=== PATIENT | female | born 1955 | race Caucasian/White ===

== ENCOUNTER 2023-12-10 22:42 | Inpatient (IN) | payer MEDICARE, OTHER, SELFPAY ==
[2023-12-10 17:42] VITALS: BP 127/73
[2023-12-10 18:06] LABS: % Basophils 0.5 % (0-2); % Eosinophils 6.9 % (0-6); % Immature Granulocytes 0.4 % (0-0.5); % Lymphocytes 11.3 % (20.5-51.1); % Monocytes 9.7 % (1.7-9.3); % Neutrophils 71.2 % (42.2-75.2); Absolute Basophils 0.1 10^3/uL (0-0.2); Absolute Eosinophils 1.3 10^3/uL (0-0.7); Absolute Immature Granulocytes 0.1 10^3/uL (0-0.05); Absolute Lymphocytes 2.1 10^3/uL (1.2-3.4); Absolute Monocytes 1.8 10^3/uL (0.1-0.6); Hematocrit 37.7 % (37.0-47.0); Hemoglobin 13.4 g/dL (12.0-16.0); Mean Corp Hgb Conc. 35.5 g/dL (33.0-37.0); Mean Corpuscular Hgb 32.5 pg (27.0-31.0); Mean Corpuscular Volume 91.5 fL (81.0-99.0); Mean Platelet Volume 8.5 fL (7.4-10.4); Nucleated Red Blood Cells % 0 %; Platelet Count 339 10^3/uL (130-400); Red Blood Cell Count 4.12 10^6/uL (4.20-5.40); Red Cell Dist. Width 11.9 % (11.5-14.5); White Blood Cell Count 18.3 10^3/uL (4.8-10.8)
--- NOTE | 2023-12-10 18:18 | ED.GENMED ---
History of Present Illness
General
Chief Complaint: Abdominal Pain
Source: patient
Exam Limitations: none
Time Seen by Provider: 12/10/23 18:17
Nursing documentation reviewed up to this point in time: agreed with
Travel History
Have you had any contact with someone who has COVID-19?: No
Do you have any symptoms of coronavirus? Fever > 100 degrees, chills, cough, shortness of breath, sore throat, loss of taste or smell, muscle aches, or headache?: No
History of Present Illness
History of Present Illness:
68-year-old female with history of Saul, GERD, HTN, HLD, NIDDM states LLQ pain x 2 days, some relief with Tylenol today pain worse, feels constipated and bloated, had hard BM this a.m., is nauseous w no vomiting. Denies fever, CP, SOB
Meds:
Hydrochlorothiazide 12.5
Prevacid 15 mg
Jardiance 10 mg
Amlodipine 5 mg
Losartan 50 mg
Generic Zetia 10 mg
Just stopped metformin 500 mg yesterday and started Glipizide ER 5 mg
Being treated for UTI: Bactrim DS BID has had three doses
Past History
Past History
ED Past Medical History: HTN, NIDDM, Other (Bronchitis) and Other (Elevated LFTs from Zocor)
ED Past Surgical History: Gynecological and Orthopedic
Social History
Tobacco: Non-smoker
Alcohol: None
Drug: None
Personal:
Living: with family
Employment: Employed
Family History
Family History: Other (Gallstones)
Review of Systems
Review of Systems
Allergies reviewed?: Yes
All Other Systems: ROS reviewed and negative except as documented in HPI and ROS
Constitutional: Denies fever
Respiratory: Denies trouble breathing
Cardiac: Denies chest pain
ABD/GI: Reports abdominal pain, nausea and constipated; Denies vomiting, diarrhea, bloody stools or black stools
: Denies dysuria, frequency, difficulty voiding or urgency
Musculoskeletal: Reports no symptoms
Skin: Reports no symptoms
Neurological: Reports no symptoms
Phy Exam
Physical Exam
Physical Exam:
GENERAL: No acute distress. A&Ox3.
CONSTITUTIONAL: Afebrile.
EYES: clear, conjunctivae normal
ENMT: moist mucus membranes, Pharynx nl
RESPIRATORY: Regular respirations, nonlabored, lungs clear.
CARDIOVASCULAR: Regular rate and rhythm, no murmurs, no rubs.
GI: Soft, tender left abdomen, no guarding, hypoactive BS
MUSCULOSKELETAL: Moves with ease. Well perfused.
SKIN: Warm, dry, pink
PSYCH: Normal mood and affect. Well kept, interactive and appropriate
NEUROLOGIC: Awake, alert and oriented. No focal neurological deficits
Course
Orders/Labs/Results
Orders:
Orders
12/10/23 17:55
Complete Blood Count/With Diff Urgent
Comprehensive Metabolic Panel Urgent
Lipase Urgent
Urinalysis Reflex To Culture Urgent
Date Specimen was Collected: 12/10/23
Time Specimen was Collected: 17:49
Comment: clean catch
Urine Microscopic Reflex Cult Urgent
Urine Culture Urgent
JUAN LUIS Source: U
Specimen Description:
Date Specimen was Collected: 12/10/23
Time Specimen was Collected: 17:49
12/10/23 18:27
CT Abd/Pel (IV only)-DH only Urgent
Comment:
Reason For Exam: L side abdominal pain, bloating, constipated.
12/10/23 18:34
0.9% Sodium Chloride 1000 ml [Nss] 1,000 ml IV BOLUS
HYDROmorphone [Dilaudid] 0.5 mg IV NOW STA
Ondansetron Injectable [Zofran] 4 mg IV NOW STA
12/10/23 20:53
Acetaminophen 1000MG/100Ml [Ofirmev] 1,000 mg in 100 ml IV ONCE
Acetaminophen IV Indication:: No NH & No Enteral Access
Ondansetron Injectable [Zofran] 4 mg IV NOW STA
12/10/23 20:55
CefTRIAXone [Rocephin] 1,000 mg IV NOW STA
12/10/23 21:06
COVID-19 Antigen Urgent
Specimen Description:
Source: Nasal Swab
Lactic Acid Q4H
Comment: CANCEL 2nd LACTIC ACID IF 1st LACTIC ACID IS LESS THAN 2
Blood Culture Q30M
JUAN LUIS Source: Blood/Venous
Specimen Description:
Blood Culture Q30M
JUAN LUIS Source: Blood/Venous
Specimen Description:
Influenza A+B Rapid Molecular Urgent
JUAN LUIS Source: Nasal Swab
Specimen Description:
12/10/23 21:24
CR Chest - 2 Views Urgent
Comment:
Reason For Exam: fever, n/v, cough
12/10/23 22:00
Flush (0.9% Sodium Chloride) [Flush (Nss)] See Dose Instructions IV PER PROTOCOL
12/10/23 22:21
Admit/Transfer Patient As Directed
Co-Sign Provider:
Level of Care: Inpatient admission
Assign to:: Telemetry
Physician / Group: Sridevi
Diagnosis: Severe Sepsus
Reason for Telemetry: Arrhythmia
Date to Stop Telemetry: 12/13/23
Time to Stop Telemetry: 11:00
Reason for Hospitalization: IVFs, IV abx
Expected length of stay greater than two midnights?: Yes
ELOS- Estimated Length of Stay in days: 3
I certify the patient meets the requirements for IP care: Yes
0.9% Sodium Chloride 500 ml [Nss] 500 ml IV BOLUS
12/10/23 22:23
Code Status As Directed
Resuscitation Status: Full Code
12/10/23 22:30
0.9% Sodium Chloride 1000 ml [Nss] 1,000 ml IV 125 mls/hr
12/10/23 23:19
Acetaminophen [Tylenol] 650 mg PO Q4HPRN PRN
Dextrose 50%-Water [Dextrose 50% Syringe] 12.5 grams IV [id number] PRN
Glucagon [GlucaGen] 1 mg IM PRN PRN
HYDROmorphone [Dilaudid] 0.25 mg IV Q3HPRN PRN
Ketorolac [Toradol] 15 mg IV Q6HPRN PRN
Ondansetron Injectable [Zofran] 4 mg IV Q6HPRN PRN
12/10/23 23:19
Activity As Directed
Activity Level: Out of Bed-Early Mobility
With Assistance
Bedside Glucose Monitoring As Directed
Frequency: AC&HS
Additional Instructions:: Change to q6h if pt on TPN, tube feeding or not eating
I&O [Intake/ Output] As Directed
Frequency: q12h
Vital Signs As Directed
Frequency: Per unit guidelines
Weight As Directed
Frequency: Daily
DX Deep Vein Thrombosis Video Routine
12/11/23 00:00
Piperacillin/Tazo 3.375 Gram [Zosyn] 3.375 gram in 50 ml IV Q6H
12/11/23 00:50
Lactic Acid Q4H
Comment: CANCEL 2nd LACTIC ACID IF 1st LACTIC ACID IS LESS THAN 2
12/11/23 06:18
Complete Blood Count/No Diff IN AM
Comprehensive Metabolic Panel IN AM
Magnesium IN AM
12/11/23 07:30
Insulin Aspart Corrective Mod [Novolog Flexpen-Moderate Resistance] See Protocol SC AC
12/11/23 08:00
Amlodipine [Norvasc] 5 mg PO DAILY
Cetirizine HCl [Zyrtec] 10 mg PO DAILY
Losartan [Cozaar] 50 mg PO DAILY
Pantoprazole [Protonix] 40 mg PO DAILY
12/11/23 18:00
Enoxaparin Sodium [Lovenox] 40 mg SC QPM
12/13/23 11:00
DC Protocol for Telemetry ONCE
Abnormal Lab Results
12/10/23 12/10/23
17:55 21:06
WBC 18.3 H 10^3/uL
(4.8-10.8)
RBC 4.12 L 10^6/uL
(4.20-5.40)
MCH 32.5 H pg
(27.0-31.0)
Abs Immat Gran (auto) 0.1 H 10^3/uL
(0-0.05)
Absolute Neuts (auto) 13.0 H 10^3/uL
(1.4-6.5)
Absolute Monos (auto) 1.8 H 10^3/uL
(0.1-0.6)
Absolute Eos (auto) 1.3 H 10^3/uL
(0-0.7)
Lymphocytes % 11.3 L %
(20.5-51.1)
Monocytes % 9.7 H %
(1.7-9.3)
Eosinophils % 6.9 H %
(0-6)
Chloride 94 L mmol/L
(98-107)
Glucose 123 H mg/dl
(70-99)
Lactic Acid 3.4 H mmol/L
(0.7-2.0)
ALT 63 H U/L
(0-35)
Urine Nitrite (Reflex) Positive A
(Negative)
Urine Bacteria (Reflex) Few A
(Negative)
Urine Glucose 3+ A
(Negative)
12/10/23 17:55
12/10/23 17:55
Vital Signs
Initial and Last Documented VS:
Initial Vital Signs
Temp Pulse Resp BP Pulse Ox
98.4 F 94 18 127/73 98
12/10/23 17:42 12/10/23 17:42 12/10/23 17:42 12/10/23 17:42 12/10/23 17:42
Last Documented Vital Signs
Temp Pulse Resp BP Pulse Ox
98.1 F 82 18 102/53 92
12/11/23 07:45 12/11/23 07:45 12/11/23 07:45 12/11/23 07:45 12/11/23 07:45
MDM/Problems Addressed
Differential Diagnosis Includes:
Constipation, IBS, Colitis, diverticulitis
UTI, Urosepsis
MDM/Problems Addressed:
68-year-old female with history of Saul, GERD, HTN, HLD, NIDDM states LLQ pain x 2 days, some relief with Tylenol today pain worse, feels constipated and bloated, had hard BM this a.m., is nauseous w no vomiting. Denies fever, CP, SOB
Afebrile
6:30 p.m.
CBC: WBC 18.3
CMP: No clinically significant abnormality
U/A: Positive nitrites 6-10 WBC
8:[address] abdomen pelvis with
IMPRESSION:
Colonic diverticulosis. No intestinal obstruction, right lower quadrant inflammatory changes or free air.
Several small right lower quadrant mesenteric lymph nodes, nonspecific. Cannot exclude mesenteric adenitis.
Findings suggesting diffuse fatty liver.
8:50 p.m.
Sudden onset nausea and vomiting, rigors and fever
Temp 103.1
Septic work up in progress
?UTI failing out pt antibiotics
CXR pending
Covid and Flu pending.
Hospitalist notified of admission.
Chronic conditions affecting care: DM and HTN
*Critical Care Note
Total Time (30-74mins, 75-104mins- exclusive of procedures): Not Applicable
ED Attending Note
-
Portions of this chart may have been created with voice recognition software.� Occasional wrong word or��sound alike� substitutions may have occurred due to the inherent limitations of voice recognition software.
Discharge Plan
Departure
Patient Disposition: Admit
Date of Disposition: 12/10/23
Time of Disposition: 21:25
Admit to: Med/Surg
Presentation/result/management discussed w/ accepting MD/DO: Hospitalist
Condition: Fair
Discharge Problem:
Acute UTI, SIRS (systemic inflammatory response syndrome)
Interventions
Interventions:
*Risk Screen - Suicide Last Done: 12/10/23 23:18
*General Assessment Last Done: 12/10/23 23:18
*Neglect/Abuse Screening Last Done: 12/10/23 23:18
ED- Fall Risk Assessment Last Done: 12/10/23 19:12
*ED COVID-19 Vaccine History Last Done: 12/10/23 23:18
*Nursing Disposition Last Done: 12/10/23 23:18
MM-Oinazo-[id number] Assessment Last Done: 12/10/23 19:12
Discharge Date and Time
Discharge Date/Time: 12/10/23 23:30
[2023-12-10 18:21] LABS: ALT (SGPT) 63 U/L (0-35); AST (SGOT) 33 U/L (14-36); Albumin 4.5 g/dl (3.5-5.0); Alkaline Phosphatase 119 U/L (38-126); Blood Urea Nitrogen 15 mg/dl (7-17); Calcium 10.2 mg/dl (8.4-10.2); Carbon Dioxide 29 mmol/L (22-30); Chloride 94 mmol/L (98-107); Glucose 123 mg/dl (70-99); Potassium 3.7 mmol/L (3.5-5.1); Sodium 135 mmol/L (135-145); Total Bilirubin 1.3 mg/dl (0.2-1.3); Total Protein 7.9 g/dl (6.3-8.2); eGFR > 60.00
[2023-12-10 18:22] LABS: Lipase 73 U/L (23-300)
[2023-12-10 18:45] LABS: Urine Albumin Trace (Neg - Trace); Urine Bilirubin Negative (Negative); Urine Character Clear (Clear); Urine Color Yellow; Urine Glucose 3+ (Negative); Urine Ketone Negative (Negative); Urine Leukocyte Negative (Negative); Urine Nitrite Positive (Negative); Urine Occult Blood Negative (Negative); Urine Specific Gravity 1.005 (<1.030); Urine Urobilinogen Negative (Neg - 1+)
[2023-12-10] MEDS: ZOFRAN 4 MG IV ×2 (19:07→21:13)
[2023-12-10] MEDS: DILAUDID 0.5 MG IV (19:07)
[2023-12-10] MEDS: NSS 1000 IV ×2 (19:09→22:47)
[2023-12-10 19:17] LABS: Urine Red Blood Cell 0-2 /HPF (0-2)
[2023-12-10 19:18] LABS: Urine Bacteria Few (Negative)
[2023-12-10 21:00] VITALS: BP 175/95
[2023-12-10 21:09] VITALS: BP 175/95
[2023-12-10] MEDS: OFIRMEV 100 IV (21:12)
[2023-12-10] MEDS: ROCEPHIN 1000 MG IV (21:12)
[2023-12-10 21:19] VITALS: BMI 30.9
[2023-12-10 21:23] VITALS: BP 148/64
[2023-12-10 21:38] LABS: Lactic Acid 3.4 mmol/L (0.7-2.0)
[2023-12-10 21:41] LABS: COVID-19 Antigen Negative (Negative)
--- NOTE | 2023-12-10 22:12 | HPS.HSE ---
Family Physician
-
Family Physician: Tomas Armas
Chief Complaint
-
Abdominal Pain
History of Present Illness
Patient is a 68 y/o female past medical history of hypertension, hyperlipidemia, diabetes mellitus and GOETZ who presents with abdominal pain. Patient reports she initially developed dysuria with some abdominal pain a few days ago. She was started
on Bactrim for a urinary tract infection. She reports both dysuria and abdominal pain improved, but than abdominal pain recurred. Pain is described as constant pain in the left mid-abdomen with an occasional sharp stab. She repots some nausea and
dry heaves. She reports associated constipation. While in the emergency department she developed fever. She denies cough, shortness of breath, chest pain or recurrence of urinary symptoms.
Medical History
Past Medical History
Past Medical History: Reports Other
Additional Past Medical History:
Essential Hypertension
Hyperlipidemia
Diabetes Mellitus
GOETZ
GERD
Past Surgical History: Reports Other
Additional Past Surgical History:
Left Wrist Fracture
Social History
Tobacco: Non-smoker
Alcohol: Occasional
Family History
Family History: Not pertinent
Allergies / Home Medications
Allergies reflects when Allergies were last updated in [employer].
Home Medications with original date entered in [employer]
Allergy/Medication List:
Allergies
Allergy/AdvReac Type Severity Reaction Status Date / Time
No Known Allergies Allergy Verified 12/10/23 17:42
Home Medications
amlodipine 5 mg tablet 5 mg PO DAILY 04/05/13
cetirizine 10 mg tablet 10 mg PO DAILY 04/05/13
hydrochlorothiazide 12.5 mg capsule 12.5 mg PO DAILY 04/05/13
empagliflozin 10 mg tablet (Jardiance) 10 mg PO DAILY 12/10/23
ezetimibe 10 mg tablet (Zetia) 10 mg PO DAILY 12/10/23
glipizide 5 mg tablet, extended release 24 hr 5 mg PO DAILY 12/10/23
lansoprazole 15 mg capsule,delayed release 15 mg PO DAILY 12/10/23
losartan 50 mg tablet 50 mg PO DAILY 12/10/23
Review of Systems
-
A 12 point ROS was completed and negative except as noted: Yes
Constitutional: Reports Fever
Respiratory: Denies Cough or Trouble Breathing
Cardiac: Denies Chest Pain or Palpitations
Abdomen/GI: Reports See HPI
: Denies Dysuria or Frequency
Physical Exam
Vital Signs
Vital Signs
Temp Pulse Resp BP Pulse Ox
103.1 F H 122 20 175/95 100
12/10/23 21:09 12/10/23 21:09 12/10/23 21:09 12/10/23 21:09 12/10/23 21:09
Physical Exam
General: Comfortable and Conversant
HEENT: Anicteric and Moist mucous membranes
Respiratory: Clear and Non Labored Respirations
Cardiac: S1/S2, Regular Rhythm and Tachycardia
GI: Soft and Tender (Mild tenderness left mid/lower abdomen without rebound or guarding)
Musculoskeletal: No Clubbing, No Cyanosis and No Edema
Skin: Warm and Dry
Neuro: Awake, Alert, Oriented and Nonfocal/grossly intact
Laboratory Results
-
12/10/23 17:55
12/10/23 17:55
Laboratory Results
Lactic Acid 3.4 mmol/L (0.7-2.0) H 12/10/23 21:06
Total Bilirubin 1.3 mg/dl (0.2-1.3) 12/10/23 17:55
AST 33 U/L (14-36) 12/10/23 17:55
ALT 63 U/L (0-35) H 12/10/23 17:55
Alkaline Phosphatase 119 U/L (38-126) 12/10/23 17:55
Lipase 73 U/L (23-300) 12/10/23 17:55
Data Reviewed
-
Diagnostic Radiology: Report Reviewed by me
CT Scan: Report Reviewed by me
Lab Data: Labs Reviewed by me
Impression/Plan
-
Severe Sepsis, possible GI source vs partial treated UTI vs mesenteric adenitis
-Continue Zosyn
-Trend lactic acid level
-Await urine and blood cultures
-Allow clear liquids
Constipation
-Continue Miralax
Essential Hypertension
-Hold HCTZ
-Continue amlodipine and losartan with hold parameters
Hyperlipidemia
-Hold Zetia
Diabetes Mellitus, Type II
-HgbA1c 8.6 in November 2023
-Hold oral meds
-Monitor sugars and continue coverage insulin
GERD
-Continue Protonix
DVT proph: Lovenox
Code Status: Full Code
--- NOTE | 2023-12-10 22:15 | W.PN.UPDATE ---
Update Note
Progress Note Update
This is an addendum to the H&P written PA Yudelka Kebede on 12/10/2023.
68-year-old female past medical history of GERD, hypertension, hyperlipidemia, diabetes, presenting after recently treated for UTI due to dysuria and abdominal pain treated with Bactrim with persistent left lower quadrant abdominal pain somewhat
radiates to the right side and around the left flank. Also patient having fever.
Urinalysis at this time shows resolution of UTI. CT abdomen pelvis with IV contrast only shows several small right lower quadrant mesenteric lymph nodes. Fever could be secondary to mesenteric adenitis, although pain does not anatomically
correlate, vs diverticulitis vs persistent UTI. Clears, check urine culture, blood cultures, IV fluids, Zosyn.
[2023-12-10 22:36] VITALS: BP 100/61
[2023-12-10] MEDS: FLUSH (NSS) 1 FLUSH IV (22:38)
[2023-12-10] MEDS: NSS 500 IV (22:46)
--- NOTE | 2023-12-10 23:15 | PTCARENOTE ---
Patient received from the ED via stretcher. Patient ambulated into the room. AAOx3, no complaints of pain at this time. VSS. Temp of 100.6. Tylenol PRN exceeds daily maximum dosage. [employer] aware. Given ice pack. Patient oriented to the room, call ribeiro
is within reach.
[2023-12-10 23:18] VITALS: BP 107/52; BMI 27.7
[2023-12-10] MEDS: ZOSYN 50 IV (23:32)
[2023-12-10 23:48] LABS: Glucose - Point of Care 178 mg/dl (70-99)
[2023-12-11 01:08] LABS: Lactic Acid 0.9 mmol/L (0.7-2.0)
[2023-12-11 03:36] VITALS: BP 102/55
[2023-12-11] MEDS: ZOSYN 50 IV ×2 (05:32→11:21)
[2023-12-11 06:00] VITALS: BMI 27.9
[2023-12-11 07:00] LABS: Hemoglobin 11.5 g/dL (12.0-16.0); Mean Corp Hgb Conc. 33.8 g/dL (33.0-37.0); Mean Corpuscular Hgb 32.5 pg (27.0-31.0); Mean Platelet Volume 9.1 fL (7.4-10.4); Platelet Count 257 10^3/uL (130-400); Red Blood Cell Count 3.54 10^6/uL (4.20-5.40); Red Cell Dist. Width 11.9 % (11.5-14.5); White Blood Cell Count 16.5 10^3/uL (4.8-10.8)
[2023-12-11] MEDS: NSS 1000 IV ×2 (07:31→16:11)
[2023-12-11 07:45] VITALS: BP 102/53
[2023-12-11 07:53] LABS: ALT (SGPT) 43 U/L (0-35); AST (SGOT) 26 U/L (14-36); Albumin 3.3 g/dl (3.5-5.0); Alkaline Phosphatase 90 U/L (38-126); Blood Urea Nitrogen 15 mg/dl (7-17); Calcium 8.7 mg/dl (8.4-10.2); Carbon Dioxide 22 mmol/L (22-30); Chloride 104 mmol/L (98-107); Estimated Creatinine Clearance 50 ml/min; Glucose 139 mg/dl (70-99); Magnesium 2.1 mg/dl (1.6-2.3); Potassium 3.8 mmol/L (3.5-5.1); Sodium 139 mmol/L (135-145); Total Bilirubin 0.9 mg/dl (0.2-1.3); eGFR > 60.00
[2023-12-11 08:23] LABS: Glucose - Point of Care 299 mg/dl (70-99)
[2023-12-11] MEDS: NORVASC PO (08:30)
[2023-12-11] MEDS: COZAAR PO (08:30)
[2023-12-11] MEDS: ZYRTEC 10 MG PO (08:32)
[2023-12-11] MEDS: PROTONIX 40 MG PO (08:32)
[2023-12-11] MEDS: NOVOLOG FLEXPEN-MODERATE RESISTANCE 5 UNITS SC (08:32)
[2023-12-11] MEDS: DILAUDID 0.25 MG IV ×2 (10:01→20:34)
--- NOTE | 2023-12-11 10:42 | W.PN.HOSP.TC ---
Today's Communication/Plan
-
see outlined plan
Assessment / Plan
Assessment / Plan
Assessment:
Severe Sepsis (leukocytosis, fever, lactic acidosis)
Gram negative bacilli bacteremia
Recent diagnosis UTI
- only took 2 doses of Abx
- continue Zosyn
- follow urine and blood cultures
- CT without acute pathology
- consult ID
Possible mesenteric adenitis
- per CT
- although pain is LLQ and nodes RLQ
- continue IV abx
- advance to full liquids and observe tolerance (had some nausea)
Constipation
- continue Miralax
Essential Hypertension
- hold HCTZ
- continue amlodipine and losartan with hold parameters
Hyperlipidemia
- hold Zetia
Diabetes Mellitus, Type II
- HgbA1c 8.6 in November 2023
- Hold oral meds
- Monitor sugars and continue coverage insulin
GERD
- continue Protonix
DVT proph: Lovenox
Code Status: Full Code
Anticipated Discharge: > 48 hours
Subjective/Interval History
-
Date of Service: December 11, 2023
Tmax 103 overnight, this AM 98.1
reports LLQ pain, no flank pain - improved with pain meds
no nausea, tolerated clears
Objective Data
-
Labs:
Laboratory Results
12/11/23
06:18
WBC 16.5 H
Hgb 11.5 L
Hct 34.0 L
Plt Count 257 D
Sodium 139
Potassium 3.8
Chloride 104
Carbon Dioxide 22
BUN 15
Creatinine 1.0
Glucose 139 H
Calcium 8.7 D
Total Bilirubin 0.9
AST 26
ALT 43 H
Alkaline Phosphatase 90
Vital Signs:
Vital Signs
Temp Pulse Resp BP Pulse Ox
98.1 F 82 18 102/53 92
12/11/23 07:45 12/11/23 07:45 12/11/23 07:45 12/11/23 07:45 12/11/23 07:45
I&O
12/10/23 12/11/23 12/12/23
06:59 06:59 06:59
Intake Total 975 / 975
Balance 975 / 975
Physical Exam
-
General: No Apparent Distress
HEENT: Normocephalic and Atraumatic
Respiratory: Negative Wheezes
Cardiac: Regular Rhythm and S1/S2
GI: Soft and Tender (mildly tender LLQ, no RLQ pain)
Genito-urinary: No Costovertebral Tender
Musculoskeletal: No Edema
Neuro: AO x 3
Psych: Calm
Data Reviewed
-
Total Time Spent with Patient (in minutes): 42
Labs: Labs Reviewed by me
[2023-12-11 11:01] VITALS: BP 139/76
[2023-12-11] MEDS: TYLENOL 650 MG PO (11:23)
[2023-12-11 11:34] LABS: Glucose - Point of Care 156 mg/dl (70-99)
[2023-12-11] MEDS: ZOFRAN 4 MG IV (11:39)
[2023-12-11] MEDS: NOVOLOG FLEXPEN-MODERATE RESISTANCE SC (12:46)
--- NOTE | 2023-12-11 15:16 | CON.ID ---
Consultation
-
Date/Time Consultation Requested: November 1057
Date/Time Consultation Performed: December 11, 2023 1515
Requesting Provider: Dr. Lang Fowler
Performing Provider: Dr. Christina Mahoney
Reason for Consultation: Bacteremia
Chief Complaint / Past History
Chief Complaint
lower abdominal pain
History of Present Illness
68-year-old female with history of diabetes mellitus, fatty liver, who developed painful urination with left pelvic pain on December 06. She was very weak and fatigued. No subjective fevers or chills at the time. She saw her primary care physician on
December 07 who ordered UA with reflex to urine culture and prescribe Bactrim. Patient started the Bactrim that evening and 2 doses the next day. Her dysuria improved. Abdominal pain also improved. However yesterday, the left-sided abdominal pain
returned and became severe. She came to the hospital. She was febrile to 103.1, white count of 18.3. CAT scan of the abdomen pelvis shows few right lower quadrant mesenteric lymphadenopathy. Patient received ceftriaxone in the ER and started on
Zosyn. She had shaking chills today. No longer with dysuria. The left lower pelvic pain persists and radiates to her back. Pain medicine does help. No history of frequent UTIs. No travel history.
Past History
Additional Past Medical History:
Hypertension
Diabetes
Dyslipidemia
GOETZ
Left wrist fracture repair
Allergy History:
No Known Allergies Allergy (Verified 12/10/23 17:42)
Medications Reviewed: Yes
Current Antibiotics:
Zosyn
Social History
Tobacco: Non-Smoker
Alcohol: Occasional
Drug: None
Family History
Family History: Not Pertinent
Review of Systems
Review of Systems
General: Fever, Chills and Change in Appetite
HEENT: Negative Sinus Problems, Headache or Pharyngitis
Cardiovascular: Negative Chest Pain
Respiratory: Negative Cough
Gasteroenterology: Other (constipated); Negative Nausea or Vomiting
Genital / Urological: Negative Flank Pain
Endocrine: Weakness
Vital Signs
Temp Pulse Resp BP Pulse Ox
98.9 F 115 20 139/76 94
12/11/23 11:01 12/11/23 11:01 12/11/23 11:01 12/11/23 11:01 12/11/23 11:01
Selected Entries
12/10/23
21:09
Temp 103.1 F H
Physical Exam
Physical Exam
Constitutional: No Acute Distress
Eyes: No Conjunctival Hemorrhage and Sclera Anicteric
Cardiovascular: S1/S2 and Other (tachy)
Pulmonary: Clear
Gastrointestinal: Soft, Tender (mild left pelvic), Non Distended and Normal Bowel Sounds
Genito-Urinary: Negative CVA Tenderness
Extremities: Negative Edema
Neurological: AO x 3
Lab / Diagnostic Study Results
12/11/23 06:18
12/11/23 06:18
Abs Immat Gran (auto) 0.1 10^3/uL (0-0.05) H 12/10/23 17:55
Absolute Neuts (auto) 13.0 10^3/uL (1.4-6.5) H 12/10/23 17:55
Absolute Lymphs (auto) 2.1 10^3/uL (1.2-3.4) 12/10/23 17:55
Absolute Monos (auto) 1.8 10^3/uL (0.1-0.6) H 12/10/23 17:55
Absolute Basos (auto) 0.1 10^3/uL (0-0.2) 12/10/23 17:55
Immature Gran % 0.4 % (0-0.5) 12/10/23 17:55
Neutrophils % 71.2 % (42.2-75.2) 12/10/23 17:55
Lymphocytes % 11.3 % (20.5-51.1) L 12/10/23 17:55
Monocytes % 9.7 % (1.7-9.3) H 12/10/23 17:55
Eosinophils % 6.9 % (0-6) H 12/10/23 17:55
Basophils % 0.5 % (0-2) 12/10/23 17:55
Lactic Acid 0.9 mmol/L (0.7-2.0) 12/11/23 00:50
Ur Squamous Epith Cells 3-5 /LPF (Few) 12/10/23 17:55
Microbiology Results
Micro:
12/10/23 21:06 Blood Culture - Preliminary
Blood/Venous Escherichia coli
Gram Stain - Final
12/10/23 17:55 Urine Culture - Preliminary
Urine Escherichia coli
12/10/23 21:06 Blood Culture - Preliminary
Blood/Venous Positive culture in progress
Gram Stain - Final
12/10/23 21:06 Influenza Types A & B (FRED) - Final
Nasal Swab Negative for Influenza A & B, NAAT
Negative results must be combined with clinical observations
and patient history.
Nucleic Acid Amplification test (NAAT)performed on the
[employer] NOW platform.
12/10/23 CXR: No acute cardiopulmonary process.
12/10/23 CT a/p: Colonic diverticulosis. No intestinal obstruction, right lower quadrant inflammatory changes or free air. Several small right lower quadrant mesenteric lymph nodes, nonspecific. Cannot exclude mesenteric adenitis.
Assessment / Plan
# E. coli bacteremia
# Complicated E. coli UTI
# Sepsis fever, leukocytosis, tachycardia
- Reviewed 12/07 outside UA 2+nitrite, 2+LE, >60WBC, Ucx 100k E. coli sensitive to Bactrim (pt took 3 doses prior to admission).
- CT a/p no hydro
-Repeat blood cx's
- Narrow Zosyn to ceftriaxone.
- Follow temps, wbc
# Small nonspecific mesenteric lymph nodes
- doubt mesenteric adenitis
pt wo RLQ pain. Her pain is located in left pelvis.
--- NOTE | 2023-12-11 15:34 | CM ---
Patient seen at bedside with patient . Patient stated that she lives with in a ranch style home and she uses the [facility] in [place], and her PCP is Dr. Armas. Patient is open to VN if needed. Patient provides supports as
needed. CM will continue to follow for discharge planning needs.
Plan; home with no needs vs home with VN
[2023-12-11] MEDS: ROCEPHIN 1000 MG IV (16:03)
[2023-12-11] MEDS: STERILE WATER FOR INJECTION 10 ML IV (16:03)
[2023-12-11 16:06] VITALS: BP 109/65
[2023-12-11 16:21] LABS: Glucose - Point of Care 213 mg/dl (70-99)
[2023-12-11] MEDS: NOVOLOG FLEXPEN-MODERATE RESISTANCE 3 UNITS SC (16:22)
[2023-12-11] MEDS: LOVENOX 40 MG SC (18:30)
[2023-12-11 19:56] VITALS: BP 109/53
[2023-12-11] MEDS: TORADOL 15 MG IV (21:21)
[2023-12-11 21:54] LABS: Glucose - Point of Care 97 mg/dl (70-99)
[2023-12-11 23:55] VITALS: BP 109/56
[2023-12-12] MEDS: NSS 1000 IV ×2 (00:03→05:21)
[2023-12-12 03:55] VITALS: BP 131/66
[2023-12-12 06:00] VITALS: BMI 29.0
[2023-12-12 07:35] VITALS: BP 135/73
[2023-12-12 07:51] LABS: Glucose - Point of Care 118 mg/dl (70-99)
[2023-12-12 08:21] LABS: % Basophils 0.6 % (0-2); % Eosinophils 4.8 % (0-6); % Immature Granulocytes 0.6 % (0-0.5); % Lymphocytes 7.4 % (20.5-51.1); % Monocytes 8.8 % (1.7-9.3); % Neutrophils 77.8 % (42.2-75.2); Absolute Basophils 0.1 10^3/uL (0-0.2); Absolute Eosinophils 0.6 10^3/uL (0-0.7); Absolute Immature Granulocytes 0.1 10^3/uL (0-0.05); Absolute Lymphocytes 0.9 10^3/uL (1.2-3.4); Absolute Monocytes 1.1 10^3/uL (0.1-0.6); Absolute Neutrophils 9.6 10^3/uL (1.4-6.5); Hematocrit 33.7 % (37.0-47.0); Hemoglobin 11.3 g/dL (12.0-16.0); Mean Corp Hgb Conc. 33.5 g/dL (33.0-37.0); Mean Corpuscular Hgb 31.8 pg (27.0-31.0); Mean Corpuscular Volume 94.9 fL (81.0-99.0); Mean Platelet Volume 9.2 fL (7.4-10.4); Nucleated Red Blood Cells % 0 %; Platelet Count 247 10^3/uL (130-400); Red Blood Cell Count 3.55 10^6/uL (4.20-5.40); Red Cell Dist. Width 11.9 % (11.5-14.5); White Blood Cell Count 12.3 10^3/uL (4.8-10.8)
[2023-12-12] MEDS: ZYRTEC 10 MG PO (08:50)
[2023-12-12] MEDS: PROTONIX 40 MG PO (08:50)
[2023-12-12] MEDS: COZAAR 50 MG PO (08:50)
[2023-12-12] MEDS: NORVASC PO (08:50)
[2023-12-12 08:53] LABS: Blood Urea Nitrogen 13 mg/dl (7-17); Calcium 8.5 mg/dl (8.4-10.2); Carbon Dioxide 18 mmol/L (22-30); Chloride 108 mmol/L (98-107); Estimated Creatinine Clearance 63 ml/min; Glucose 115 mg/dl (70-99); Potassium 3.7 mmol/L (3.5-5.1); Sodium 136 mmol/L (135-145); eGFR > 60.00
[2023-12-12 08:54] VITALS: BMI 29.0
[2023-12-12 08:56] LABS: Glucose - Point of Care 125 mg/dl (70-99)
[2023-12-12] MEDS: NOVOLOG FLEXPEN-MODERATE RESISTANCE SC ×2 (08:58→17:43)
--- NOTE | 2023-12-12 09:10 | W.PN.HOSP.TC ---
Today's Communication/Plan
-
continue IV Abx and follow repeat cultures
advance diet
Assessment / Plan
Assessment / Plan
Assessment:
Severe Sepsis (leukocytosis, fever, lactic acidosis)
E. Coli bacteremia from E. Coli UTI
Recent diagnosis UTI
- continue Rocephin, day 2 as per ID
- follow repeat blood cultures
- CT without acute pathology
- ID following
Possible mesenteric adenitis
- per CT
- although pain is LLQ and nodes RLQ so less likely clinically
- advance diet and observe tolerance
Constipation
- continue Miralax
Essential Hypertension
- hold HCTZ
- continue amlodipine and losartan with hold parameters
Hyperlipidemia
- hold Zetia
Diabetes Mellitus, Type II
- HgbA1c 8.6 in November 2023
- resume oral meds
- Monitor sugars and continue coverage insulin
GERD
- continue Protonix
DVT proph: Lovenox
Code Status: Full Code
Anticipated Discharge: 24 - 48 hours
Subjective/Interval History
-
Date of Service: December 12, 2023
feels tired
Tmax overnight 99.9
Objective Data
-
Labs:
Laboratory Results
12/12/23
07:46
WBC 12.3 H
Hgb 11.3 L
Hct 33.7 L
Plt Count 247
Sodium 136
Potassium 3.7
Chloride 108 H
Carbon Dioxide 18 L
BUN 13
Creatinine 0.8
Glucose 115 H
Calcium 8.5
Vital Signs:
Vital Signs
Temp Pulse Resp BP Pulse Ox
99.3 F 99 18 135/73 92
12/12/23 07:35 12/12/23 07:35 12/12/23 07:35 12/12/23 07:35 12/12/23 07:35
I&O
12/11/23 12/12/23 12/13/23
06:59 06:59 06:59
Intake Total 975 / 975 1117 / 1117
Balance / 975 1117 / 1117
Physical Exam
-
General: No Apparent Distress
HEENT: Normocephalic and Atraumatic
Respiratory: Negative Wheezes
Cardiac: Regular Rhythm
GI: Soft and Nontender
Neuro: AO x 3
Hematologic / Lymphatic: No Lymphadenopathy
Psych: Calm
Data Reviewed
-
Total Time Spent with Patient (in minutes): 42
Labs: Labs Reviewed by me
[2023-12-12] MEDS: JARDIANCE 10 MG PO (09:49)
[2023-12-12] MEDS: GLUCOTROL XL (EXTENDED RELEASE) 5 MG PO (09:49)
--- NOTE | 2023-12-12 10:30 | CM ---
Patient mother in law was a volunteer here and they are very appreciative of supports when patient last year. No needs anticipated at this time. CM will continue to follow for discharge planning need.
Plan; home with no needs anticipated at this time.
--- NOTE | 2023-12-12 11:13 | W.PN.ID1 ---
Date of Service
Date of Service: December 12, 2023
Today's Communication
Continue ceftriaxone.
Assessment / Plan
# E. coli bacteremia
# Complicated E. coli UTI
# Sepsis fever, leukocytosis, tachycardia: improving
- Reviewed 12/07 outside UA 2+nitrite, 2+LE, >60WBC, Ucx 100k E. coli sensitive to Bactrim (pt took 3 doses prior to admission).
- CT a/p no hydro
-Repeat blood cx's pending
- Continue ceftriaxone (d2)
- Follow temps, wbc
# Small nonspecific mesenteric lymph nodes
- doubt mesenteric adenitis
pt wo RLQ pain. Her pain is located in left pelvis.
#Additional Past Medical History:
Hypertension
Diabetes
Dyslipidemia
GOETZ
Left wrist fracture repair
Chief Complaint
-: UTI and Bacteremia
Subjective / Review of Systems
No more shaking chills.
Left pelvic pain better.
Vital Signs / Physical Exam
Vital Signs
Vital Signs
Temp Pulse Resp BP Pulse Ox
99.3 F 99 18 135/73 92
12/12/23 07:35 12/12/23 07:35 12/12/23 07:35 12/12/23 07:35 12/12/23 07:35
Physical Exam
Constitutional: No Acute Distress and Comfortable
Gastrointestinal: Soft, Non Tender and Non Distended
Genito-Urinary: Negative CVA Tenderness
Objective Data
Lab Data
Lab Results
12/12/23 07:46
12/12/23 07:46
Estimated Creat Clear 63 ml/min 12/12/23 07:46
Lactic Acid 0.9 mmol/L (0.7-2.0) 12/11/23 00:50
Total Bilirubin 0.9 mg/dl (0.2-1.3) 12/11/23 06:18
AST 26 U/L (14-36) 12/11/23 06:18
ALT 43 U/L (0-35) H 12/11/23 06:18
Alkaline Phosphatase 90 U/L (38-126) 12/11/23 06:18
Most recent labs reviewed.
Micro Results:
12/10/23 17:55 Urine Culture - Preliminary
Urine Escherichia coli
12/10/23 21:06 Blood Culture - Preliminary
Blood/Venous Escherichia coli
Gram Stain - Final
12/10/23 21:06 Blood Culture - Preliminary
Blood/Venous Escherichia coli
Gram Stain - Final
12/12/23 07:46 Blood Culture - Pending
Blood/Venous
12/11/23 17:15 Blood Culture - Pending
Blood/Venous
12/10/23 21:06 Influenza Types A & B (FRED) - Final
Nasal Swab Negative for Influenza A & B, NAAT
Negative results must be combined with clinical observations
and patient history.
Nucleic Acid Amplification test (NAAT)performed on the
[employer] platform.
12/10/23 CXR: No acute cardiopulmonary process.
12/10/23 CT a/p: Colonic diverticulosis. No intestinal obstruction, right lower quadrant inflammatory changes or free air. Several small right lower quadrant mesenteric lymph nodes, nonspecific. Cannot exclude mesenteric adenitis.
[2023-12-12 12:01] LABS: Glucose - Point of Care 158 mg/dl (70-99)
[2023-12-12] MEDS: TYLENOL 650 MG PO (12:06)
[2023-12-12] MEDS: NOVOLOG FLEXPEN-MODERATE RESISTANCE 1 UNITS SC (12:07)
[2023-12-12 12:40] VITALS: BP 146/76
[2023-12-12] MEDS: ROCEPHIN 1000 MG IV (16:10)
[2023-12-12] MEDS: STERILE WATER FOR INJECTION 10 ML IV (16:10)
[2023-12-12 16:26] VITALS: BP 130/67
[2023-12-12 17:32] LABS: Glucose - Point of Care 81 mg/dl (70-99)
[2023-12-12] MEDS: LOVENOX SC (18:19)
[2023-12-12 20:04] VITALS: BP 126/62
[2023-12-12] MEDS: TORADOL 15 MG IV (20:14)
[2023-12-12 21:24] LABS: Glucose - Point of Care 105 mg/dl (70-99)
[2023-12-12 23:44] VITALS: BP 133/93
[2023-12-13 03:46] VITALS: BP 151/70
[2023-12-13 05:45] VITALS: BMI 28.4
[2023-12-13 06:00] VITALS: BMI 28.4
[2023-12-13 08:15] LABS: % Basophils 0.6 % (0-2); % Eosinophils 5.8 % (0-6); % Immature Granulocytes 0.5 % (0-0.5); % Lymphocytes 9.4 % (20.5-51.1); % Monocytes 7.7 % (1.7-9.3); Absolute Basophils 0.1 10^3/uL (0-0.2); Absolute Eosinophils 0.7 10^3/uL (0-0.7); Absolute Immature Granulocytes 0.1 10^3/uL (0-0.05); Absolute Lymphocytes 1.1 10^3/uL (1.2-3.4); Absolute Monocytes 0.9 10^3/uL (0.1-0.6); Absolute Neutrophils 9.2 10^3/uL (1.4-6.5); Hematocrit 36.5 % (37.0-47.0); Hemoglobin 12.5 g/dL (12.0-16.0); Mean Corp Hgb Conc. 34.2 g/dL (33.0-37.0); Mean Corpuscular Hgb 32.1 pg (27.0-31.0); Mean Corpuscular Volume 93.8 fL (81.0-99.0); Nucleated Red Blood Cells % 0 %; Platelet Count 304 10^3/uL (130-400); Red Blood Cell Count 3.89 10^6/uL (4.20-5.40); Red Cell Dist. Width 11.9 % (11.5-14.5)
[2023-12-13 08:49] LABS: Glucose - Point of Care 167 mg/dl (70-99)
[2023-12-13 08:49] LABS: Blood Urea Nitrogen 13 mg/dl (7-17); Calcium 8.8 mg/dl (8.4-10.2); Carbon Dioxide 21 mmol/L (22-30); Chloride 105 mmol/L (98-107); Estimated Creatinine Clearance 63 ml/min; Glucose 89 mg/dl (70-99); Potassium 3.6 mmol/L (3.5-5.1); Sodium 138 mmol/L (135-145); eGFR > 60.00
[2023-12-13 09:18] VITALS: BP 119/75
[2023-12-13] MEDS: COZAAR 50 MG PO (09:21)
[2023-12-13] MEDS: NOVOLOG FLEXPEN-MODERATE RESISTANCE 1 UNITS SC (09:21)
[2023-12-13] MEDS: JARDIANCE 10 MG PO (09:22)
[2023-12-13] MEDS: GLUCOTROL XL (EXTENDED RELEASE) 5 MG PO (09:22)
[2023-12-13] MEDS: NORVASC 5 MG PO (09:22)
[2023-12-13] MEDS: PROTONIX 40 MG PO (09:22)
[2023-12-13] MEDS: ZYRTEC 10 MG PO (09:22)
--- NOTE | 2023-12-13 10:40 | W.PN.ID1 ---
Date of Service
Date of Service: December 13, 2023
Today's Communication
Can dc home on cipro 500mg po bid through 12/21/23.
Assessment / Plan
# E. coli bacteremia
# Complicated E. coli UTI
# s/p Sepsis
- Reviewed 12/07 outside UA 2+nitrite, 2+LE, >60WBC, Ucx 100k E. coli sensitive to Bactrim (pt took 3 doses prior to admission).
- CT a/p no hydro
-Repeat blood cx's neg to date.
- Currently on ceftriaxone (d3)
-Can dc home on cipro 500mg po bid through 12/21/23.
# Small nonspecific mesenteric lymph nodes
- doubt mesenteric adenitis
pt wo RLQ pain. Her pain is located in left pelvis.
#Additional Past Medical History:
Hypertension
Diabetes
Dyslipidemia
GOETZ
Left wrist fracture repair
Chief Complaint
-: UTI and Bacteremia
Subjective / Review of Systems
Feels good today. No pelvic pain today.
Vital Signs / Physical Exam
Vital Signs
Vital Signs
Temp Pulse Resp BP Pulse Ox
98.2 F 90 20 119/75 94
12/13/23 09:18 12/13/23 09:18 12/13/23 09:18 12/13/23 09:18 12/13/23 09:18
Physical Exam
Constitutional: No Acute Distress and Comfortable
Gastrointestinal: Soft, Non Tender, Non Distended and Normal Bowel Sounds
Genito-Urinary: Negative CVA Tenderness
Objective Data
Lab Data
Lab Results
12/13/23 07:36
12/13/23 07:36
Estimated Creat Clear 63 ml/min 12/13/23 07:36
Lactic Acid 0.9 mmol/L (0.7-2.0) 12/11/23 00:50
Total Bilirubin 0.9 mg/dl (0.2-1.3) 12/11/23 06:18
AST 26 U/L (14-36) 12/11/23 06:18
ALT 43 U/L (0-35) H 12/11/23 06:18
Alkaline Phosphatase 90 U/L (38-126) 12/11/23 06:18
Most recent labs reviewed.
Micro Results:
12/10/23 17:55 Urine Culture - Final
Urine Escherichia coli
12/10/23 21:06 Blood Culture - Final
Blood/Venous Escherichia coli
Gram Stain - Final
12/10/23 21:06 Blood Culture - Final
Blood/Venous Escherichia coli
Gram Stain - Final
12/12/23 07:46 Blood Culture - Preliminary
Blood/Venous No Growth in 24 hours- Final report to follow
12/11/23 17:15 Blood Culture - Preliminary
Blood/Venous No Growth in 24 hours- Final report to follow
12/10/23 21:06 Influenza Types A & B (FRED) - Final
Nasal Swab Negative for Influenza A & B, NAAT
Negative results must be combined with clinical observations
and patient history.
Nucleic Acid Amplification test (NAAT)performed on the
[employer] platform.
12/10/23 CXR: No acute cardiopulmonary process.
12/10/23 CT a/p: Colonic diverticulosis. No intestinal obstruction, right lower quadrant inflammatory changes or free air. Several small right lower quadrant mesenteric lymph nodes, nonspecific. Cannot exclude mesenteric adenitis.
Care Review
Plan reviewed with: Physician (Dr. Abdalla)
--- NOTE | 2023-12-13 10:44 | W.PN.HOSP.TC ---
Today's Communication/Plan
-
Po abx per ID
dc home
Assessment / Plan
Assessment / Plan
Assessment:
Severe Sepsis (leukocytosis, fever, lactic acidosis)
E. Coli bacteremia from E. Coli UTI
Recent diagnosis UTI
- continue Rocephin
- follow repeat blood cultures-negative so far.
- Ucx and Blood cx sensitivity noted. Remains afebrile. WBC continues to trend down.
- CT without acute pathology
- ID following
Possible mesenteric adenitis
- per CT
- although pain is LLQ and nodes RLQ so less likely clinically
- advance diet and observe tolerance
-OP repeat CT in 1-2 month to see resolution
Constipation
- continue Miralax
Essential Hypertension
- restart HCTZ
- continue amlodipine and losartan with hold parameters
Hyperlipidemia
- hold Zetia
Diabetes Mellitus, Type II
- HgbA1c 8.6 in November 2023
- resume oral meds
- Monitor sugars and continue coverage insulin
GERD
- continue Protonix
DVT proph: Lovenox
Code Status: Full Code
d/w with ID
Dispo-dc home
More than 30 minutes spent in discharge including
Final examination of the patient
Summarizing hospital stay
Instructions for continuing care to all relevant caregivers
Preparation of discharge records, prescriptions, and referral forms
Total time spent (in minutes): 50
Anticipated Discharge: Today
Subjective/Interval History
-
Date of Service: December 13, 2023
Tolerating diet
no abd pain
afebrile
Objective Data
-
Labs:
Laboratory Results
12/13/23
07:36
WBC 12.0 H
Hgb 12.5
Hct 36.5 L
Plt Count 304 D
Sodium 138
Potassium 3.6
Chloride 105
Carbon Dioxide 21 L
BUN 13
Creatinine 0.8
Glucose 89
Calcium 8.8
Vital Signs:
Vital Signs
Temp Pulse Resp BP Pulse Ox
98.2 F 90 20 119/75 94
12/13/23 09:18 12/13/23 09:18 12/13/23 09:18 12/13/23 09:18 12/13/23 09:18
I&O
12/12/23 12/13/23 12/14/23
06:59 06:59 06:59
Intake Total 1117 / 1117 1080 / 1080
Balance 1117 / 1117 1080 / 1080
Physical Exam
-
General: No Apparent Distress
HEENT: Normocephalic and Atraumatic
Respiratory: Clear to Auscultation; Negative Wheezes
Cardiac: Regular Rhythm and S1/S2
GI: Soft, Nontender, Nondistended and Normal Bowel Sounds
Neuro: Awake and AO x 3
Psych: Calm
--- NOTE | 2023-12-13 11:13 | W.DCSUMMARY ---
Discharge Summary
Discharge Data
Date of Admission: 12/10/23
Date of Discharge: 12/13/23
-
Pending Results: No
Hospital Course
68 yo F with pmhx of HTN, HLD, DM2, GOETZ who p/w with abdomen pain. Patient reports she initially developed dysuria with some abdominal pain a few days ago. She was started on Bactrim for a urinary tract infection. She reports both dysuria and
abdominal pain improved, but than abdominal pain recurred. CT abdomen pelvis with IV contrast only shows several small right lower quadrant mesenteric lymph nodes. Found to have severe sepsis 2/2 E.coli UTI and bacteremia. ID was consulted. IV
rocephin was started. Fevers resolved. WBC downtrended. Tolerating diet. Cultures resulted with plan to transition to po cipro on discharge per ID. Recommended OP repeat CT abd/pelvis to resolution to lymphadenopathy.
Discharge Plan
-
Patient Disposition: Home (Routine Discharge)
Discharge Diagnosis/Procedures: Severe Sepsis
E. Coli bacteremia from E. Coli UTI
Possible mesenteric adenitis
Condition: Fair
Diet: 2 Gram Sodium
Activity: With assistance and As tolerated
Driving Restrictions: As prior to admission
Others Tests: CT abd/pelvis in 4-8 weeks via primary doctor to assess Several small right lower quadrant mesenteric lymph nodes
Referrals:
Tomas Armas MD [Family Provider] - in less than 1 week
Prescriptions:
New
ciprofloxacin HCl [Cipro] 500 mg tablet
500 mg PO Q12H Qty: 18 0RF
Continued
cetirizine 10 MG tablet
10 mg PO DAILY
amlodipine 5 MG tablet
5 mg PO DAILY
hydrochlorothiazide 12.5 MG capsule
12.5 mg PO DAILY
losartan 50 mg Tablet
50 mg PO DAILY
lansoprazole 15 mg Capsule,Delayed Release(Dr/Ec)
15 mg PO DAILY
ezetimibe [Zetia] 10 mg Tablet
10 mg PO DAILY
glipizide 5 mg Tablet Extended Release 24hr
5 mg PO DAILY
Jardiance 10 mg Tablet
10 mg PO DAILY
Discharge Orders:
Discharge Patient (As Directed); Ordered 12/13/23
Ordered By: Anshu Abdalla
Discharge Date and Time
Print Language: CYMRO
[2023-12-13] MEDS: ROCEPHIN 1000 MG IV (12:33)
[2023-12-13] MEDS: STERILE WATER FOR INJECTION 10 ML IV (12:33)
[2023-12-13] MEDS: NOVOLOG FLEXPEN-MODERATE RESISTANCE SC (12:36)
[2023-12-13 12:37] LABS: Glucose - Point of Care 95 mg/dl (70-99)
--- NOTE | 2023-12-13 14:39 | PTCARENOTE ---
IV discontinued. Discharge paperwork printed and reviewed with patient and spouse who verbalized understanding. Pt transported off the floor via wheelchair with all belongings from the room.
== END 2023-12-13 14:40 | disposition home or self-care (01) | DRG 872 ==
LOC: 4 EAST ACU 22:42
PROVIDERS: Internal Medicine; Physician Assistant Medical; Registered Nurse; ADMITTING PHYSICIAN Hospitalist; ATTENDING PHYSICIAN Hospitalist; CONSULT PHYSICIAN Internal Medicine Infectious Disease; EMERGENCY PHYSICIAN Emergency Medicine; FAMILY PHYSICIAN Family Medicine
DX: A41.51 Sepsis due to Escherichia coli [E. coli] (principal); N39.0 Urinary tract infection, site not specified; R65.20 Severe sepsis without septic shock; K59.00 Constipation, unspecified; I10 Essential (primary) hypertension; E78.5 Hyperlipidemia, unspecified; E11.9 Type 2 diabetes mellitus without complications; K21.9 Gastro-esophageal reflux disease without esophagitis; Z11.52 Encounter for screening for COVID-19
CPT/HCPCS: 71046; 74177; 80048; 80053; 81003; 81015; 82962; 83605; 83690; 83735; 85025; 85027; 87040; 87071; 87086; 87149; 87186; 87205; 87502; 87811; 96361; 96374; 96375; 96376; 99285; Q9967

== ENCOUNTER → 2024-01-27 06:37 | Day surgery (SDC) | payer MEDICARE, OTHER, SELFPAY ==
[2024-01-27 08:53] LABS: Glucose - Point of Care 169 mg/dl (70-99)
== END ==
LOC: GI 06:37
PROVIDERS: ATTENDING PHYSICIAN Internal Medicine; FAMILY PHYSICIAN Family Medicine
DX: R10.13 Epigastric pain (principal); K22.89 Other specified disease of esophagus; K31.7 Polyp of stomach and duodenum; K29.50 Unspecified chronic gastritis without bleeding; K31.A11 Gastric intestinal metaplasia without dysplasia, involving the antrum; K21.00 Gastro-esophageal reflux disease with esophagitis, without bleeding
CPT/HCPCS: 43239; 88305; 82962; 88342

== ENCOUNTER 2024-03-20 14:53 | Emergency (ER) | payer MEDICARE, OTHER, SELFPAY ==
[2024-03-20 15:01] VITALS: BP 156/93
[2024-03-20 15:15] LABS: % Basophils 0.7 % (0-2); % Eosinophils 8.1 % (0-6); % Immature Granulocytes 0.3 % (0-0.5); % Lymphocytes 12.9 % (20.5-51.1); % Monocytes 8.1 % (1.7-9.3); % Neutrophils 69.9 % (42.2-75.2); Absolute Basophils 0.1 10^3/uL (0-0.2); Absolute Lymphocytes 1.6 10^3/uL (1.2-3.4); Absolute Neutrophils 8.5 10^3/uL (1.4-6.5); Hematocrit 39.5 % (37.0-47.0); Hemoglobin 13.9 g/dL (12.0-16.0); Mean Corp Hgb Conc. 35.2 g/dL (33.0-37.0); Mean Corpuscular Hgb 32.9 pg (27.0-31.0); Mean Corpuscular Volume 93.6 fL (81.0-99.0); Mean Platelet Volume 8.4 fL (7.4-10.4); Nucleated Red Blood Cells % 0 %; Platelet Count 283 10^3/uL (130-400); Red Blood Cell Count 4.22 10^6/uL (4.20-5.40); Red Cell Dist. Width 12.1 % (11.5-14.5); White Blood Cell Count 12.1 10^3/uL (4.8-10.8)
[2024-03-20 15:33] LABS: ALT (SGPT) 43 U/L (0-35); AST (SGOT) 37 U/L (14-36); Albumin 4.4 g/dl (3.5-5.0); Alkaline Phosphatase 120 U/L (38-126); Blood Urea Nitrogen 16 mg/dl (7-17); Carbon Dioxide 30 mmol/L (22-30); Chloride 97 mmol/L (98-107); Glucose 150 mg/dl (70-99); Lipase 105 U/L (23-300); Potassium 4.1 mmol/L (3.5-5.1); Sodium 138 mmol/L (135-145); Total Bilirubin 0.7 mg/dl (0.2-1.3); Total Protein 7.5 g/dl (6.3-8.2); eGFR > 60.00
[2024-03-20] MEDS: ZOFRAN 4 MG IV (16:39)
[2024-03-20] MEDS: NSS 1000 IV (16:39)
[2024-03-20] MEDS: DILAUDID 0.5 MG IV ×2 (16:40→19:21)
[2024-03-20] MEDS: OMNIPAQUE 50 ML PO (16:40)
[2024-03-20 16:44] VITALS: BMI 28.8
[2024-03-20 16:45] VITALS: BP 158/77
[2024-03-20 16:55] LABS: Urine Albumin Negative (Neg - Trace); Urine Bilirubin Negative (Negative); Urine Character Clear (Clear); Urine Color Yellow; Urine Glucose Negative (Negative); Urine Ketone Negative (Negative); Urine Leukocyte 1+ (Negative); Urine Nitrite Negative (Negative); Urine Occult Blood Negative (Negative); Urine Specific Gravity 1.005 (<1.030); Urine Urobilinogen Negative (Neg - 1+)
[2024-03-20 17:00] VITALS: BP 149/75
[2024-03-20 17:08] LABS: Urine Bacteria Moderate (Negative); Urine Red Blood Cell 0-2 /HPF (0-2)
[2024-03-20 19:22] VITALS: BP 132/84
[2024-03-20 19:31] VITALS: BP 132/84
--- NOTE | 2024-03-20 19:35 | ED.GENMED ---
Addendum entered and electronically signed by Audra Bruno PA-C 03/24/24 10:48:
Patient's culture showed growth for E.coli. Patient was treated with fosfomycin. Patient states that she no longer has symptoms. She has a follow-up appointment with her urologist on Wednesday. No indication for additional antibiotic treatment at
this time.
Original Note:
History of Present Illness
General
Chief Complaint: Abdominal Symptoms
Source: patient
Exam Limitations: none
Time Seen by Provider: 03/20/24 15:54
Nursing documentation reviewed up to this point in time: agreed with
History of Present Illness
History of Present Illness:
Patient to ED with complaint of RLQ abdominal pain. Symptoms started over a week ago and continues to worsen. No fever/chills. +nausea. No v/d. Brought to ED by spouse for eval.
Past History
Past History
ED Past Medical History: HTN, NIDDM, Other (Bronchitis) and Other (Elevated LFTs from Zocor)
ED Past Surgical History: Gynecological and Orthopedic
Social History
Tobacco: Non-smoker
Alcohol: None
Drug: None
Personal:
Living: with family
Employment: Employed
Family History
Family History: Other (Gallstones)
Review of Systems
Review of Systems
Allergies reviewed?: Yes
All Other Systems: ROS reviewed and negative except as documented in HPI and ROS
Constitutional: Reports no symptoms
EENT: Reports no symptoms
Respiratory: Reports no symptoms
Cardiac: Reports no symptoms
ABD/GI: Reports abdominal pain (RLQ abdominal pain)
: Reports no symptoms
Musculoskeletal: Reports no symptoms
Skin: Reports no symptoms
Neurological: Reports no symptoms
Psychiatric: Reports no symptoms
Phy Exam
General Physical Exam
General Presentation: well appearing and mild distress
General age: appears stated age
General Skin: warm and dry
General Habitus: normal
General Mental: alert
General Hydration: appears well hydrated
Cardiovascular Exam
Cardiovascular Exam: regular rate/rhythm and no edema
Pulmonary Exam
Pulmonary Exam: lungs clear and no respiratory distress
Gastrointestinal Exam
Gastrointestinal Exam: normal bowel sounds, soft, no organomegaly, non distended and no cva tenderness
Palpation: left upper quadrant: No tenderness, left lower quadrant: No tenderness, right upper quadrant: No tenderness and right lower quadrant: Moderate tenderness
Musculoskeletal Exam
Musculoskeletal Exam: full ROM and neuro vasc intact
Skin Exam
Skin Exam: normal color, warm/dry and no rash
Psychiatric Exam
Psychiatric Exam: normal mood/affect
Course
Orders/Labs/Results
Orders:
Orders
03/20/24 15:09
Complete Blood Count/With Diff Urgent
Comprehensive Metabolic Panel Urgent
Lipase Urgent
03/20/24 16:18
HYDROmorphone [Dilaudid] 0.5 mg IV NOW STA
Ondansetron Injectable [Zofran] 4 mg IV NOW STA
03/20/24 16:19
CT Abd/pel W Iv And Oral Contr Urgent
Comment:
Reason For Exam: RLQ pain
0.9% Sodium Chloride 1000 ml [Nss] 1,000 ml IV BOLUS
Iohexol [Omnipaque] See Protocol PO NOW STA
03/20/24 16:41
Urinalysis Reflex To Culture Urgent
Date Specimen was Collected: 03/20/24
Time Specimen was Collected: 16:36
Urine Microscopic Reflex Cult Urgent
Urine Culture Urgent
JUAN LUIS Source: U
Specimen Description:
Date Specimen was Collected: 03/20/24
Time Specimen was Collected: 16:36
03/20/24 19:18
HYDROmorphone [Dilaudid] 0.5 mg IV NOW STA
03/20/24 19:30
Fosfomycin [Monurol] 3 gm PO ONCE ONE
Abnormal Lab Results
03/20/24 03/20/24
15:09 16:41
WBC 12.1 H 10^3/uL
(4.8-10.8)
MCH 32.9 H pg
(27.0-31.0)
Absolute Neuts (auto) 8.5 H 10^3/uL
(1.4-6.5)
Absolute Monos (auto) 1.0 H 10^3/uL
(0.1-0.6)
Absolute Eos (auto) 1.0 H 10^3/uL
(0-0.7)
Lymphocytes % 12.9 L %
(20.5-51.1)
Eosinophils % 8.1 H %
(0-6)
Chloride 97 L mmol/L
(98-107)
Glucose 150 H mg/dl
(70-99)
AST 37 H U/L
(14-36)
ALT 43 H U/L
(0-35)
Leukocyte Esterase Rfl 1+ A
(Negative)
Urine WBC (Reflex) 11-15 A /HPF
(0-5)
Urine Bacteria (Reflex) Moderate A
(Negative)
03/20/24 15:09
03/20/24 15:09
Vital Signs
Initial and Last Documented VS:
Initial Vital Signs
Temp Pulse Resp BP Pulse Ox
98 F 103 18 156/93 98
03/20/24 15:01 03/20/24 15:01 03/20/24 15:01 03/20/24 15:01 03/20/24 15:01
Last Documented Vital Signs
Temp Pulse Resp BP Pulse Ox
98 F 111 14 132/84 92
03/20/24 15:01 03/20/24 19:31 03/20/24 19:31 03/20/24 19:31 03/20/24 19:31
*Radiology
Radiology exam reviewed: radiology read reviewed
*Pulse Oximetry
Patient hypoxic: no
*Critical Care Note
Total Time (30-74mins, 75-104mins- exclusive of procedures): Not Applicable
ED Attending Note
-
Portions of this chart may have been created with voice recognition software.� Occasional wrong word or��sound alike� substitutions may have occurred due to the inherent limitations of voice recognition software.
Discharge Plan
Departure
Patient Disposition: Home (Routine Discharge)
Date of Disposition: 03/20/24
Time of Disposition: 19:30
Patient with high blood pressure during this ER visit?: No
Condition: Good
Covid-19: Not Applicable
Discharge Problem:
Abdominal pain, Acute UTI
Instructions: Urinary Tract Infection, Adult ED, Abdominal Pain
Prescriptions:
New
hydrocodone-acetaminophen 5-325 mg tablet
1 tab PO Q4H PRN (Reason: Pain) Qty: 10 0RF
No Action
cetirizine 10 MG tablet
10 mg PO DAILY
amlodipine 5 MG tablet
5 mg PO DAILY
hydrochlorothiazide 12.5 MG capsule
12.5 mg PO DAILY
losartan 50 mg Tablet
50 mg PO DAILY
lansoprazole 15 mg Capsule,Delayed Release(Dr/Ec)
15 mg PO DAILY
ezetimibe [Zetia] 10 mg Tablet
10 mg PO DAILY
glipizide 5 mg Tablet Extended Release 24hr
5 mg PO DAILY
Jardiance 10 mg Tablet
10 mg PO DAILY
ciprofloxacin HCl [Cipro] 500 mg tablet
500 mg PO Q12H Qty: 18 0RF
Referrals:
Iesha Fowler MD [Non-Admitting Privileges] - Call in 1-3 days for appt
Tomas Armas MD [Family Provider] -
Activity Restrictions/Additional Instructions:
Return to the emergency department immediately for fever/chills, increasing pain, or for any further concerns
Interventions
Interventions:
*Risk Screen - Suicide Last Done: 03/20/24 16:42
*General Assessment Last Done: 03/20/24 16:42
*Neglect/Abuse Screening Last Done: 03/20/24 16:43
ED- Fall Risk Assessment Last Done: 03/20/24 16:37
*ED COVID-19 Vaccine History Last Done: 03/20/24 16:42
KZ-Iyhyfw-Tfbywkljjk Assessment Last Done: 03/20/24 16:37
Discharge Date and Time
Print Language: UKRAINIAN
[2024-03-20] MEDS: MONUROL 3 GM PO (19:47)
== END 2024-03-20 20:05 | disposition home or self-care (01) ==
LOC: EMR 14:53
PROVIDERS: Nurse Practitioner; EMERGENCY PHYSICIAN Emergency Medicine; FAMILY PHYSICIAN Family Medicine
DX: N39.0 Urinary tract infection, site not specified (principal); E11.9 Type 2 diabetes mellitus without complications; I10 Essential (primary) hypertension
CPT/HCPCS: 96374; 96375; 96376; 96361; 99284; 74177; 80053; 81003; 81015; 83690; 85025; 87077; 87086; 87186; Q9967

== ENCOUNTER → 2024-03-27 15:51 | Outpatient (REF) | payer MEDICARE, OTHER, SELFPAY ==
[2024-03-28 19:07] LABS: Urine Albumin Negative (Neg - Trace); Urine Bilirubin Negative (Negative); Urine Character Clear (Clear); Urine Color Yellow; Urine Glucose Negative (Negative); Urine Ketone Negative (Negative); Urine Leukocyte Trace (Negative); Urine Nitrite Negative (Negative); Urine Occult Blood Negative (Negative); Urine Urobilinogen Negative (Neg - 1+)
[2024-03-28 19:19] LABS: Urine Bacteria Moderate (Negative)
[2024-03-28 19:20] LABS: Urine Red Blood Cell 0-2 /HPF (0-2)
== END ==
LOC: REG 15:51
PROVIDERS: ATTENDING PHYSICIAN Urology
DX: N39.0 Urinary tract infection, site not specified (principal)
CPT/HCPCS: 36415; 81003; 81015; 87086; 87088

== ENCOUNTER 2024-08-10 06:11 | Day surgery (SDC) | payer MEDICARE, OTHER, SELFPAY ==
[2024-08-10 07:22] LABS: Glucose - Point of Care 120 mg/dl (70-99)
== END 2024-08-10 08:46 | disposition home or self-care (01) ==
LOC: GI 06:11
PROVIDERS: ATTENDING PHYSICIAN Internal Medicine
DX: Z12.11 Encounter for screening for malignant neoplasm of colon (principal); K57.30 Diverticulosis of large intestine without perforation or abscess without bleeding; D12.3 Benign neoplasm of transverse colon; K63.5 Polyp of colon; Z86.0100 Personal history of colon polyps, unspecified
CPT/HCPCS: 45380; 88305; 82962

== ENCOUNTER → 2024-10-24 12:39 | Outpatient (REF) | payer MEDICARE, OTHER, SELFPAY | LOC: HWWDC 12:39 | PROVIDERS: ATTENDING PHYSICIAN Family Medicine | DX: Z13.820 Encounter for screening for osteoporosis (principal); Z12.31 Encounter for screening mammogram for malignant neoplasm of breast; M81.0 Age-related osteoporosis without current pathological fracture | CPT/HCPCS: 77063; 77067; 77080 ==

== ENCOUNTER → 2024-11-28 11:38 | Outpatient (REF) | payer MEDICARE, OTHER, SELFPAY | LOC: HWRAD 11:38 | PROVIDERS: ATTENDING PHYSICIAN Family Medicine | DX: M25.561 Pain in right knee (principal) | CPT/HCPCS: 73564 ==